=== PATIENT | female | born 1935 | race Caucasian/White ===

== ENCOUNTER 2016-09-11 17:33 | Inpatient (IN) | payer MEDICARE ==
[2016-09-11 13:14] LABS: CREATININE 1.1 mg/dL (0.5-1.0); POTASSIUM 4.6 mmol/L (3.5-5.1)
[~2016-09-11 17:33] MED LIST: LISINOPRIL 20MG20 MG PO; TOPROL XL50 MG PO
[2016-09-11 19:14] LABS: BASOPHIL 0.5 % (0-2); EOSINOPHIL 3.1 % (0-7); HCT 30.3 % (37.0-47.0); HGB 9.8 g/dl (12.5-16.0); LYMPHOCYTE 13.8 % (15-48); MCH 29.3 pg (25.0-31.0); MCHC 32.3 g/dL (32.0-36.0); MCV 90.7 fL (78.0-100.0); MONOCYTE 8.8 % (0-12); MPV 10.6 fL (6.0-9.5); NEUTROPHIL 73.8 % (41-80); PLT 202 K/uL (150-400); RBC 3.34 M/uL (4.20-5.40); RDW 14.7 % (11.5-14.0); WBC 5.9 K/uL (4.0-10.5)
[2016-09-11 19:27] LABS: INR 1.08 (0.9-1.2); PROTHROMBIN TIME 13.6 SECONDS (11.7-14.0); PTT 31.1 SECONDS (23.2-31.4)
[2016-09-11 19:30] LABS: ALBUMIN 3.7 g/dL (3.4-4.8); BILIRUBIN - TOTAL 0.2 mg/dL (0.1-1.0); CREATININE 1.1 mg/dL (0.5-1.0); GLOBULIN (CALCULATION) 2.4 g/dL (2.2-4.2); POTASSIUM 4.2 mmol/L (3.5-5.1); TOTAL PROTEIN 6.1 g/dL (6.4-8.3)
[2016-09-12 04:21] LABS: BASOPHIL 0.3 % (0-2); EOSINOPHIL 3.8 % (0-7); HCT 30.3 % (37.0-47.0); HGB 9.8 g/dl (12.5-16.0); LYMPHOCYTE 20.7 % (15-48); MCH 29.4 pg (25.0-31.0); MCHC 32.3 g/dL (32.0-36.0); MONOCYTE 11.7 % (0-12); MPV 10.8 fL (6.0-9.5); NEUTROPHIL 63.5 % (41-80); PLT 180 K/uL (150-400); RBC 3.33 M/uL (4.20-5.40); RDW 14.7 % (11.5-14.0); WBC 5.8 K/uL (4.0-10.5)
[2016-09-12 05:28] LABS: CREATININE 1.2 mg/dL (0.5-1.0); POTASSIUM 4.2 mmol/L (3.5-5.1)
[2016-09-12 05:54] LABS: IRON 63 ug/dL (44-196); IRON % SATURATION 25 %SAT (20-50); TIBC (TOTAL IRON + UIBC) 254 U/L (228-428); UIBC 191 ug/dL (112-346)
[2016-09-12 06:35] LABS: FOLIC ACID (SERUM) 6.1 ng/mL (5.6-45.8)
[2016-09-13 04:02] LABS: HCT 32.3 % (37.0-47.0); HGB 10.3 g/dl (12.5-16.0); MCHC 31.9 g/dL (32.0-36.0); MPV 10.5 fL (6.0-9.5); RBC 3.55 M/uL (4.20-5.40); RDW 14.8 % (11.5-14.0); WBC 5.5 K/uL (4.0-10.5)
[2016-09-13 04:21] LABS: POTASSIUM 4.1 mmol/L (3.5-5.1)
[2016-09-14 05:36] LABS: HCT 31.9 % (37.0-47.0); HGB 10.4 g/dl (12.5-16.0); MCH 29.5 pg (25.0-31.0); MCHC 32.6 g/dL (32.0-36.0); MCV 90.4 fL (78.0-100.0); MPV 10.8 fL (6.0-9.5); RBC 3.53 M/uL (4.20-5.40); RDW 14.9 % (11.5-14.0); WBC 5.4 K/uL (4.0-10.5)
[2016-09-14 05:57] LABS: CREATININE 1.1 mg/dL (0.5-1.0)
== END 2016-09-14 18:10 | disposition home or self-care (01) | DRG 176 ==
LOC: FER 17:33 → FTCU 19:50 → FMS 09-13 11:57
PROVIDERS: Emergency Medicine Emergency Medical Services; Internal Medicine; ADMIT Internal Medicine
DX: I26.99 Other pulmonary embolism without acute cor pulmonale (principal); J44.9 Chronic obstructive pulmonary disease, unspecified; I47.1 Supraventricular tachycardia; N18.3 Chronic kidney disease, stage 3 (moderate); D64.9 Anemia, unspecified; M13.80 Other specified arthritis, unspecified site; N28.89 Other specified disorders of kidney and ureter; I12.9 Hypertensive chronic kidney disease with stage 1 through stage 4 chronic kidney disease, or unspecified chronic kidney disease; K80.20 Calculus of gallbladder without cholecystitis without obstruction; Z88.1 Allergy status to other antibiotic agents; Z86.010 Personal history of colon polyps
CPT/HCPCS: 36415; 71260; 76770; 80048; 80053; 82607; 82728; 82746; 83540; 83550; 85025; 85610; 85730; 87040; 87070; 87205; 93005; 93970; 94640; J0456; J3370; Q9967

== ENCOUNTER 2021-07-15 18:11 | Emergency (ER) | payer MEDICARE ==
[~2021-07-15 18:11] MED LIST changes: +DUONEB 2.5-0.5M1 AMP INH; +NORVASC5 MG PO; +POLY-IRON150 MG PO
[2021-07-15 23:28] LABS: BASOPHIL 0.9 % (0-2); EOSINOPHIL 2.6 % (0-7); HCT 37.6 % (37.0-47.0); LYMPHOCYTE 18.8 % (15-48); MCH 30.2 pg (25.0-31.0); MCHC 31.9 g/dL (32.0-36.0); MCV 94.7 fL (78.0-100.0); MONOCYTE 9.5 % (0-12); MPV 11.5 fL (6.0-9.5); NEUTROPHIL 67.9 % (41-80); NRBC 0; PLT 229 K/uL (150-400); RBC 3.97 M/uL (4.20-5.40); RDW 14.2 % (11.5-14.0); WBC 5.8 K/uL (4.0-10.5)
[2021-07-15 23:34] LABS: ALBUMIN 3.4 g/dL (3.4-5.0); BILIRUBIN - TOTAL 0.2 mg/dL (0.2-1.0); CREATININE 1.18 mg/dL (0.51-0.95); GLOBULIN (CALCULATION) 3.4 g/dL; POTASSIUM 4.3 mmol/L (3.5-5.1); TOTAL PROTEIN 6.8 g/dL (6.4-8.2)
[2021-07-16 00:40] LABS: CORONAVIRUS 2019 SARS-COV-2 NEGATIVE (NEGATIVE); INFLUENZA A NAA NEGATIVE (NEGATIVE)
[2021-07-16 06:39] LABS: BILIRUBIN NEGATIVE (NEGATIVE); BLOOD NEGATIVE Ery/uL (NEGATIVE); CLARITY CLEAR (CLEAR); COLOR YELLOW (YELLOW); GLUCOSE (U) NORMAL (NORMAL); LEUKOCYTES TRACE Leu/uL (NEGATIVE); NITRITE NEGATIVE (NEGATIVE); PROTEIN NEGATIVE (NEGATIVE); SPECIFIC GRAVITY >=1.030 (1.001-1.030); UROBILINOGEN 0.2 mg/dL (0.2-1.0)
[2021-07-16 07:08] LABS: BACTERIA 1+
[2021-07-17 05:29] LABS: HCT 35.5 % (37.0-47.0); HGB 11.1 g/dl (12.5-16.0); MCH 29.6 pg (25.0-31.0); MCHC 31.3 g/dL (32.0-36.0); MCV 94.7 fL (78.0-100.0); MPV 10.3 fL (6.0-9.5); RBC 3.75 M/uL (4.20-5.40); RDW 14.2 % (11.5-14.0); WBC 6.4 K/uL (4.0-10.5)
[2021-07-17 06:06] LABS: BILIRUBIN - TOTAL 0.2 mg/dL (0.2-1.0); BUN/CREAT RATIO (CALC) 28.3 RATIO; CREATININE 1.2 mg/dL (0.51-0.95); GLOBULIN (CALCULATION) 3.1 g/dL; PHOSPHORUS 4.5 mg/dL (2.6-4.7); POTASSIUM 4.2 mmol/L (3.5-5.1); TOTAL PROTEIN 6.1 g/dL (6.4-8.2)
[2021-07-17] MEDS ORDERED: COZAAR100 MG PO (08:09)
[2021-07-17] MEDS ORDERED: HYDRALAZINE25 MG PO (08:09)
[2021-07-17] MEDS ORDERED: METOPROLOL SUCC50 MG PO (08:09)
[2021-07-18] MEDS ORDERED: LIPITOR40 MG PO (13:35)
[2021-07-18] MEDS ORDERED: ASPIRIN EC81 MG PO (13:35)
--- NOTE | 2021-07-18 14:03 | NUR ---
07/18/21 A referral was made to [facility] per requested of Dr. Kruse in the ED. Caret[facility] will call Dr. Jean's office for orders.
== END 2021-07-18 14:40 | disposition home or self-care (01) ==
LOC: FER 18:11
PROVIDERS: Emergency Medicine; Internal Medicine
DX: I63.81 Other cerebral infarction due to occlusion or stenosis of small artery (principal); N39.0 Urinary tract infection, site not specified; R29.700 NIHSS score 0; I10 Essential (primary) hypertension; Z88.1 Allergy status to other antibiotic agents; Z79.899 Other long term (current) drug therapy; Z20.822 Contact with and (suspected) exposure to COVID-19
CPT/HCPCS: 36415; 70450; 71045; 80053; 81001; 84145; 84484; 85025; 93005; 97162; 97530-GP; A9579; J0696; U0002

== ENCOUNTER 2022-02-10 05:03 | Emergency (ER) | payer MEDICARE ==
[~2022-02-10 05:03] MED LIST changes: +ASPIRIN EC81 MG PO; +COZAAR100 MG PO; +HYDRALAZINE25 MG PO; +LIPITOR40 MG PO; +METOPROLOL SUCC50 MG PO
[2022-02-10] MEDS ORDERED: NORCO 5-325 TA1 EACH PO (08:27)
== END 2022-02-10 08:44 | disposition home or self-care (01) ==
LOC: FER 05:03
DX: S00.11XA Contusion of right eyelid and periocular area, initial encounter (principal); I10 Essential (primary) hypertension; Z79.82 Long term (current) use of aspirin; W06.XXXA Fall from bed, initial encounter; Y92.009 Unspecified place in unspecified non-institutional (private) residence as the place of occurrence of the external cause
CPT/HCPCS: 70450; 70486; 72125; 73030

== ENCOUNTER 2022-03-09 22:12 | Emergency (ER) | payer MEDICARE ==
[~2022-03-09 22:12] MED LIST changes: +NORCO 5-325 TA1 EACH PO
[2022-03-09 22:42] LABS: BASOPHIL 0.6 % (0-2); EOSINOPHIL 2.7 % (0-7); HGB 10.4 g/dl (12.5-16.0); LYMPHOCYTE 20.2 % (15-48); MCH 29.9 pg (25.0-31.0); MCHC 32.5 g/dL (32.0-36.0); MONOCYTE 8.7 % (0-12); MPV 10.5 fL (6.0-9.5); NEUTROPHIL 67.4 % (41-80); NRBC 0; PLT 198 K/uL (150-400); RBC 3.48 M/uL (4.20-5.40); RDW 15.4 % (11.5-14.0)
[2022-03-09 23:07] LABS: ALBUMIN 3.1 g/dL (3.4-5.0); BILIRUBIN - TOTAL 0.3 mg/dL (0.2-1.0); CREATININE 1.22 mg/dL (0.51-0.95); GLOBULIN (CALCULATION) 3.5 g/dL; POTASSIUM 4.9 mmol/L (3.5-5.1); TOTAL PROTEIN 6.6 g/dL (6.4-8.2)
[2022-03-09 23:26] LABS: INFLUENZA A NAA NEGATIVE (NEGATIVE)
[2022-03-09 23:28] LABS: CORONAVIRUS 2019 SARS-COV-2 POSITIVE (NEGATIVE)
[2022-03-10 02:07] LABS: BILIRUBIN NEGATIVE (NEGATIVE); BLOOD NEGATIVE Ery/uL (NEGATIVE); CLARITY CLEAR (CLEAR); COLOR YELLOW (YELLOW); GLUCOSE (U) NORMAL (NORMAL); LEUKOCYTES 2+ Leu/uL (NEGATIVE); NITRITE NEGATIVE (NEGATIVE); PROTEIN NEGATIVE (NEGATIVE); UROBILINOGEN 0.2 mg/dL (0.2-1.0)
[2022-03-10 02:15] LABS: BACTERIA TRACE; URINARY RBC RARE
[2022-03-10] MEDS ORDERED: KEFLEX250 MG PO (02:30)
[2022-03-10] MEDS ORDERED: PAXLOVID 300-11 EACH PO (02:32)
[2022-03-11] MEDS ORDERED: ATORVASTATIN CA40 MG PO (07:53)
[2022-03-11] MEDS ORDERED: ASPIRIN EC81 MG PO (07:53)
[2022-03-11] MEDS ORDERED: TOPROL XL 50 MG50 MG PO (07:54)
[2022-03-11] MEDS ORDERED: HYDRALAZINE25 MG PO (07:55)
[2022-03-11] MEDS ORDERED: COZAAR100 MG PO (07:55)
[2022-03-11] MEDS ORDERED: FERREX 150 PLU1 EACH PO (07:56)
[2022-03-11] MEDS ORDERED: PRENATAL FORMU1 EACH PO (12:57)
[2022-03-11] MEDS ORDERED: NITROFURANTOIN100 M1 PO (12:57)
== END 2022-03-10 03:00 | disposition home or self-care (01) ==
LOC: FER 22:12
PROVIDERS: Emergency Medicine
DX: U07.1 COVID-19 (principal); N39.0 Urinary tract infection, site not specified; Z88.1 Allergy status to other antibiotic agents
CPT/HCPCS: 36415; 70450; 80053; 81001; 84484; 85025; 87088; 93005; J7030; U0002